=== PATIENT | female | born 1950 | race Caucasian/White ===

== ENCOUNTER 2017-11-05 23:34 | Inpatient (IN) | payer MEDICARE, OTHER ==
[2017-11-06] MEDS ORDERED: ONDANSETRON HCL/PF 2 MG/ML VIAL IV ONE ×2 (00:27→03:04)
--- NOTE | 2017-11-06 00:33 | ERNOTE ---
Abdominal HPI - General Chief Complaint: Abdominal Pain Time Seen by Provider: 11/06/17 00:22 Source: patient Exam Limitations: no limitations - Immun/Allergies/Home Medications Immunizatons: IMMUNIZATION HX Immunizations Up to Date Yes History of Influenza Vaccine Yes Hx Pneumococcal Vaccination Yes Allergies/Adverse Reactions: Allergies No Known Allergies Allergy (Verified 11/05/17 23:53) Home Medications: HOME MEDICATIONS Aspirin [Aspirin Enteric Coated] 81 mg PO DAILY 03/16/13 [Last Taken Unknown] Ibuprofen [Motrin] 200 mg PO Q6H PRN 03/16/13 [Last Taken Unknown] Omeprazole 20 mg PO DAILY 03/16/13 [Last Taken Unknown] Zolpidem Tartrate [Ambien] 10 mg PO HS 03/16/13 [Last Taken Unknown] valACYclovir HCL [Valtrex] 500 mg PO DAILY 03/16/13 [Last Taken Unknown] Cholecalciferol (Vitamin D3) [Vitamin D3] 2,000 unit PO DAILY 09/10/14 [Last Taken Unknown] Losartan/Hydrochlorothiazide [Hyzaar 100-25 Tablet] 0.5 each PO DAILY 09/10/14 [ Last Taken Unknown] Metoprolol Tartrate [Lopressor] 25 mg PO BID 09/10/14 [Last Taken Unknown] Multivitamin [Multi-Vitamin Daily] 1 each PO DAILY 09/10/14 [Last Taken Unknown] Potassium Chloride [Klor-Con M20] 20 meq PO DAILY 09/10/14 [Last Taken Unknown] ALPRAZolam [Xanax] 0.5 mg PO BID PRN 12/23/14 [Last Taken Unknown] Meloxicam [Mobic] 7.5 mg PO BID 11/05/17 [Last Taken Unknown] - History of Present Illness Narrative: abdominal pain and nausea after eating 1-2 hours. no BM for 2 day. Timing: intermittent Quality: moderate Modifying Factors - (Worsens): Present: eating Review of Systems - Review of Systems Constitutional: Absent: recent illness, fever EYE: Present: no symptoms reported ENT: Present: no symptoms reported Respiratory: Absent: shortness of breath Cardiology: Absent: chest pain Gastrointestinal/Abdominal: Present: See HPI, nausea, vomiting, constipation, abdominal pain Genitourinary: Absent: frequency, pain Musculoskeletal: Present: no symptoms reported Skin: Present: no symptoms reported Neurological: Present: no symptoms reported Endocrine: Absent: excessive sweating, flushing Hematologic/Lymphatic: Present: no symptoms reported Psych: Present: no symptoms reported - Patient's Past Medical History Patient History - Medical: Chronic Pain, Migraines, Osteoarthritis, Other Patient History - Cardiac/Respiratory: Hypertension, Hyperlipidemia Patient History - Cancer: Breast Patient History - Surgical Procedures: Colon Resection, Other Patient History - Other: None - Family History Mother Family History - Medical: Diabetes Type 2 - Social History Living Situations: home Psych History: Hx of Depression Smoking Status: Former smoker Have you smoked in the past 12 months: No Do you dip or chew tobacco: No Alcohol Use: rarely Drug Use: none - Immunizations Immunizations Up to Date: Yes Hx Pneumococcal Vaccination: Yes History of Influenza Vaccine: Yes Physical Exam - Physical Exam General Appearance: Present: wd/wn, alert, mild distress Head Exam: Present: normal inspection, no evidence of injury Eye Exam: Normal inspection: bilateral Neck: Present: normal inspection, nontender Respiratory: Present: no respiratory distress, normal breath sounds, lungs clear Cardiovascular/Chest: Present: regular rate, rhythm, no murmur, normal peripheral pulses Gastrointestinal/Abdominal: Present: normal bowel sounds, tenderness - epigastrium- mild. Absent: distended, guarding, rebound Back Exam: Present: normal inspection, normal range of motion, no CVA tenderness , no vertebral tenderness Extremity Exam: Present: normal inspection, normal range of motion, no edema Neurological Exam: Present: alert, oriented, normal mood/affect, no motor/ sensory deficits Skin Exam: Present: normal color, warm/dry Lymphatic Exam: Present: no adenopathy ED Progress - Results and Orders Patient's Lab Results:: I have reviewed the patient's lab results. Results and Orders: Laboratory Tests 11/06/17 11/06/17 00:27 00:27 WBC 13.6 H Hgb 14.1 Hct 42.8 Plt Count 354 Neutrophils % 84.0 H Sodium 142 Potassium 3.2 L D Chloride 101 Carbon Dioxide 30.4 Anion Gap 13.8 BUN 24 H Creatinine 1.00 Random Glucose 133 H Calcium 9.2 Total Bilirubin 0.4 AST 21 ALT 29 Alkaline Phosphatase 95 Total Protein 7.9 Albumin 3.7 Amylase 30 Lipase 78 - Vital Signs Patient's Vital Signs:: I have reviewed the patient's vital signs. Vital Signs: Vital Signs 11/05/17 23:40 Temperature 36.3 C L Pulse Rate 70 Respiratory 16 Rate Blood Pressure 129/80 O2 Sat by Pulse 97 Oximetry - X-Ray X-Ray #1 X-Ray: abdomen Interpretation: Interp. by me X-ray Comments: non-specific bowel gas pattern - CT/Ultrasound CT/Ultrasound Narrative: Wide mouthed ventral abdominal umbilical hernia measuring 8.6 cm containing multiple segments of dilated and normal caliber small bowel. Low grade partial small bowel obstruction in the anterior abd and pelvis not within the hernia sac diffuse diverticulosis without diverticulitis. distal colonic anastomosis normal appendix small hiatal hernia solid abd organs unremarkable - Progress/Reassessment Chief Complaint: Abdominal Pain Progress:: Unchanged Progress Note-Subjective: 11/06/17 01:12 Discussed lab results with patient and suggested CT. Pt agrees. 11/06/17 05:19 spoke with the patient about CT results and treatment of SBO. she agrees with admission spoke with Dr. Ruiz- general surgery distribution systems serviceperson he agrees with admit to medicine and consult him. spoke with Elsy MCCORD- hospitalist she agrees with admission Departure Clinical Impression: Partial small bowel obstruction - Departure Disposition: [facility] Condition: Good
[2017-11-06 00:42] LABS: Hematocrit 42.8 % (37.0-47.0); Hemoglobin 14.1 gm/dL (12.5-16.0); Mean Cell Volume 84.1 fl (78-100); Mean Corpuscular Hemoglobin 27.7 pg (27-31); Mean Corpuscular Hgb Conc 32.9 g/dl (32-36); Mean Platelet Volume 7.9 fl (6.0-9.5); Neutrophil # 11.4 K/mm3 (1.3-6.0); Platelet Count 354 K/mm3 (150-450); Red Blood Count 5.09 M/mm3 (4.2-5.4); Red Cell Distribution Width 14.1 % (11.5-14.0); White Blood Count 13.6 K/mm3 (4.0-10.5)
[2017-11-06 00:57] LABS: Albumin * 3.7 gm/dl (3.4-5.0); Anion Gap 13.8 mmol/L (6.8-13.8); Bilirubin, Total 0.4 mg/dL (0.0-1.1); Ca. Corrected For Albumin 9.1 mg/dL (8.4-10.2); Calcium * 9.2 mg/dL (7.9-10.9); Carbon Dioxide 30.4 mmol/L (24-32.6); Potassium 3.2 mmol/L (3.4-4.6); Total Protein 7.9 gm/dL (6.2-8.2)
[2017-11-06] MEDS ORDERED: ONDANSETRON HCL/PF 2 MG/ML VIAL ONE ×2 (01:01→03:19)
[2017-11-06] MEDS ORDERED: DIATRIZOATE MEGLUMINE, SODIUM 30 ML BTL ONE ×2 (01:19→01:48)
[2017-11-06 03:04] LABS: Urine Bilirubin Negative (NEGATIVE); Urine Blood Negative /ul (NEGATIVE); Urine Ketone 15 mg/dL (NEGATIVE); Urine Nitrite Negative (NEGATIVE); Urine Protein Negative (NEGATIVE); Urine Specific Gravity 1.025 SP.GR. (1.005-1.010); Urine Urobilinogen Normal (NORMAL)
[2017-11-06 03:06] LABS: Urine Appearance Clear; Urine Bacteria 1+; Urine Color Yellow
[2017-11-06] MEDS ORDERED: HYDROmorphone HCL 2 MG/ML VIAL IV PRN (06:19)
[2017-11-06] MEDS ORDERED: ONDANSETRON HCL/PF 2 MG/ML VIAL IV PRN (06:20)
--- NOTE | 2017-11-06 06:38 | HP ---
Chief Complaint - Chief Complaint Date of Service: 11/06/17 Time of Service: 05:46 Chief Complaint: " Abdominal Pain, Nausea, Vomiting.". Source of HPI- Pt; reliable, ERP report, Pt's EMR. History of Present Illness: Mrs. Lai is a 67-yr-old [place] pt of Dr. Lopez with a PMH of: Anxiety, Breast Ca, Depression, Diverticulitis, GERD, HTN, HLD, IBS, Kidney Cysts, Insomnia & Osteoarthritis. Pt states that on day, she did not feel good. She vomited twice in the night and then felt better. Her bowels were moving well & so she did not suspect any obstruction. Then 4 days later, she felt bloated after eating her meals and she vomited twice again. She states that she also developed epigastric abdominal pain which radiated to her back. She thought she was improving, but last night, she begun vomiting and after the fourth time, she chose to come to the ED. She vomited another 3 times while at the ED. The pain in the epigastric area was back and radiated to her mid back. She denies fevers and chills. Of note, pt was seen at the [facility] in April 2015 for Diverticulitis flare with Abscess and she underwent sigmoid resection in . At the ED tonight, abdominal CT showed PSBO. Laboratory studies showed: WBC- -> 13,600 with a LT shift, K-->3.2. Dr. Ruiz contacted by the ERP and he plans to evaluate pt this am. Pt will be admitted inpatient for SBO. - Patient's Past Medical History Patient History - Medical: Chronic Pain, Migraines, Osteoarthritis, Other Patient History - Cardiac/Respiratory: Hypertension, Hyperlipidemia Patient History - Cancer: Breast Patient History - Surgical Procedures: Colon Resection, Other Patient History - Other: None - Family History Mother Family History - Medical: Diabetes Type 2 Brother Family History - Medical: Diabetes Type 1 Family History - Cardiac/Respiratory: Hypertension, Hyperlipidemia Family History - Cancer: No pertinent family hx, Other Father Family History - Medical: No pertinent hx Family History - Cardiac/Respiratory: No pertinent hx Family History - Cancer: Prostate Sister Family History - Medical: No pertinent hx Family History - Cardiac/Respiratory: Hypertension Family History - Cancer: No pertinent family hx - Social History Living Situations: home Psych History: Hx of Depression Smoking Status: Former smoker Have you smoked in the past 12 months: No Do you dip or chew tobacco: No Alcohol Use: rarely Drug Use: none - Immunizations Immunizations Up to Date: Yes Hx Pneumococcal Vaccination: Yes History of Influenza Vaccine: Yes Review Of Systems (GEN) - Review of Systems Generalized/Overall Review: Present: Malaise, Fatigue. Absent: Weakness, Chills , Fever EENTM: Absent: Eye Pain, Blurred Vision Respiratory: Absent: Cough, Shortness of Breath, Orthopnea Cardiac: Absent: Chest Pain, Edema, Palpitations Abdominal: Present: Nausea, Vomiting, Abdominal Pain, Constipation. Absent: Hematemesis, Diarrhea, Melena, Bright blood from rectum Genitourinary: Absent: Burning, Itching, Urgency, Frequency Musculoskeletal: Absent: Joint Pain, Back Pain, Joint Swelling Neurological: Absent: Headache, Anxiety, Depressed Skin: Absent: Dryness, Lesions, Lumps Endocrine: Present: Intolerance to Cold. Absent: Increased Hunger, Increased Thirst Misc: All systems neg except as marked Allergies/Adverse Reactions: Allergies Allergy/AdvReac Type Severity Reaction Status Date / Time No Known Allergies Allergy Verified 11/06/17 07:50 Home Medications: HOME MEDICATIONS Aspirin [Aspirin Enteric Coated] 81 mg PO DAILY 03/16/13 [Last Taken Unknown] Ibuprofen [Motrin] 200 mg PO Q6H PRN 03/16/13 [Last Taken Unknown] Omeprazole 20 mg PO DAILY 03/16/13 [Last Taken Unknown] Zolpidem Tartrate [Ambien] 10 mg PO HS 03/16/13 [Last Taken Unknown] valACYclovir HCL [Valtrex] 500 mg PO DAILY 03/16/13 [Last Taken Unknown] Cholecalciferol (Vitamin D3) [Vitamin D3] 2,000 unit PO DAILY 09/10/14 [Last Taken Unknown] Metoprolol Tartrate [Lopressor] 25 mg PO BID 09/10/14 [Last Taken Unknown] Multivitamin [Multi-Vitamin Daily] 1 each PO DAILY 09/10/14 [Last Taken Unknown] Potassium Chloride [Klor-Con M20] 20 meq PO DAILY 09/10/14 [Last Taken Unknown] ALPRAZolam [Xanax] 0.5 mg PO BID PRN 12/23/14 [Last Taken Unknown] Meloxicam [Mobic] 7.5 mg PO BID 11/05/17 [Last Taken Unknown] Losartan/Hydrochlorothiazide [Losartan-Hctz 50-12.5 mg Tab] 1 each PO DAILY 08/14 [Last Taken Unknown] Exam - Exam Vital Signs: Vital Signs - Last Taken Temp 36.3 C L 11/05/17 23:40 Pulse 73 11/06/17 04:56 Resp 14 11/06/17 04:29 BP 135/63 11/06/17 04:56 Pulse Ox 95 11/06/17 04:56 Constitutional: Present: Alert, Oriented x3, Cooperative ENT Exam: Present: normal ENT inspection, dry mucous membranes Eye Exam: bilateral eye: normal inspection, PERRL Neck: Present: non-tender, full range of motion, supple Back Exam: Present: normal inspection, no CVA tenderness Breasts: Present: Exam deferred Respiratory: Present: normal breath sounds, No rales, No wheezing Cardiovascular/Chest: Present: normal peripheral pulses, regular rate, rhythm, no chest tenderness Abdomen: Present: Normal bowel sounds, obese, tender - LLQ /Rectal: Present: Exam deferred Extremity: Present: normal range of motion, non-tender, normal inspection, no pedal edema Skin Exam: Present: warm/dry, no cyanosis Lymphatic: Present: no adenopathy Neurologic: Present: alert, normal mood/affect, oriented x 3 Appearance: Present: appropriate appearance, appropriate insight Eye contact: Present: cooperative, good eye contact Thoughts: Present: no apparent hallucination Diagnostic Studies: Laboratory Results WBC 13.6 K/mm3 (4.0-10.5) H 11/06/17 00:27 RBC 5.09 M/mm3 (4.2-5.4) 11/06/17 00:27 Hgb 14.1 gm/dL (12.5-16.0) 11/06/17 00:27 Hct 42.8 % (37.0-47.0) 11/06/17 00:27 MCV 84.1 fl (78-100) 11/06/17 00:27 MCH 27.7 pg (27-31) 11/06/17 00:27 MCHC 32.9 g/dl (32-36) 11/06/17 00:27 RDW 14.1 % (11.5-14.0) H 11/06/17 00:27 Plt Count 354 K/mm3 (150-450) 11/06/17 00:27 MPV 7.9 fl (6.0-9.5) 11/06/17 00: Immature Gran % (Auto) 0.40 % (0.001-0.429) 11/06/17 00: Immature Gran # (Auto) 0.06 K/mm3 (0.000-0.0310) H 11/06/17 00: Neutrophils % 84.0 % (42-75.0) H 11/06/17 00:27 Lymphocytes % 7.8 % (20-51) L 11/06/17 00: Monocytes % 6.7 % (0.0-9) 11/06/17: Eosinophils % 0.7 % (0.0-3.0) 11/06/17 00: Basophils % 0.4 % (0.0-1.0) 11/06/17 00: Nucleated RBC % 0.0 k/mm3 (0-1) 11/06/17 00: Neutrophils # 11.4 K/mm3 (1.3-6.0) H 11/06/17 00:27 Lymphocytes # 1.1 k/mm3 (1.5-3.5) L 11/06/17 00: Monocytes # 0.9 k/mm3 (0.0-1.0) 11/06/17 00: Eosinophils # 0.1 k/mm3 (0.0-0.7) 11/06/17 00: Absolute Basophils 0.1 k/mm3 (0.0-0.1) 11/06/17 00: Sodium 142 mmol/L (132-142) 11/06/17 00: Plasma Sodium 143 mmol/L (130-142) H 11/06/17 00:27 Potassium 3.2 mmol/L (3.4-4.6) L D 11/06/17 00: Chloride 101 mmol/L (97-106) 11/06/17 00: Carbon Dioxide 30.4 mmol/L (24-32.6) 11/06/17 00: Anion Gap 13.8 mmol/L (6.8-13.8) 11/06/17 00: BUN 24 mg/dL (3-23) H 11/06/17 00:27 Creatinine 1.00 mg/dL (0.4-1.4) 11/06/17 00:27 Est GFR (Non-Af Amer) 59 mL/min (60-130) L D 11/06/17 00:27 BUN/Creatinine Ratio 24.0 (9.0-21.6) H 11/06/17 00:27 Random Glucose 133 mg/dL (70-110) H 11/06/17 00:27 Calcium 9.2 mg/dL (7.9-10.9) 11/06/17 00:27 Calcium Adj for Albumin 9.1 mg/dL (8.4-10.2) 11/06/17 00:27 Total Bilirubin 0.4 mg/dL (0.0-1.1) 11/06/17 00:27 AST 21 U/L (0-48) 11/06/17 00:27 ALT 29 U/L (19-67) 11/06/17 00:27 Alkaline Phosphatase 95 U/L (50-170) 11/06/17 00:27 Total Protein 7.9 gm/dL (6.2-8.2) 11/06/17 00:27 Albumin 3.7 gm/dl (3.4-5.0) 11/06/17 00:27 Amylase 30 U/L (25-115) 11/06/17 00:27 Lipase 78 U/L (73-393) 11/06/17 00:27 Urine Color Yellow 11/06/17 02:55 Urine Appearance Clear 11/06/17 02:55 Urine pH 6.0 pH (5.0-7.0) 11/06/17 02:55 Ur Specific [place] 1.025 SP.GR. (1.005-1.010) 11/06/17 02:55 Urine Protein Negative mg/dL (NEGATIVE) 11/06/17 02:55 Urine Glucose (UA) Negative mg/dL (NEGATIVE) 11/06/17 02:55 Urine Ketones 15 mg/dL (NEGATIVE) 11/06/17 02:55 Urine Blood Negative /ul (NEGATIVE) 11/06/17 02:55 Urine Nitrate Negative (NEGATIVE) 11/06/17 02:55 Urine Bilirubin Negative mg/dl (NEGATIVE) 11/06/17 02:55 Urine Urobilinogen Normal EU/dl (NORMAL) 11/06/17 02:55 Ur Leukocyte Esterase 25 /ul (NEGATIVE) H 11/06/17 02:55 Urine RBC 5-10 /hpf (0-5) H 11/06/17 02:55 Urine WBC 5-10 /hpf (0-5) H 11/06/17 02:55 Ur Epithelial Cells 10-25 /hpf (0-5) H 11/06/17 02:55 Urine Bacteria 1+ (NONE) H 11/06/17 02:55 Urine Culture Comments Culture to follow 11/06/17 02:55 Assessment/Plan - Assessment/Plan (1) Partial small bowel obstruction Assessment: Pt abdominal CT showed PSBO. Surgery consulted on pt's case and will evaluate in am. No fevers, V.S stable, no severe or rebound abdominal tenderness. The plan is to manage her conservatively with: NG to LIS, Keep NPO, Provide pain mgt and antiemetics & IVF hydration. Problem: Acute (2) HTN (hypertension) Assessment: Stable- On Lorsartan. Problem: Chronic Qualifiers: Hypertension type: essential hypertension Qualified Code(s): I10 - Essential (primary) hypertension (3) GERD (gastroesophageal reflux disease) Assessment: Stable- Omeprazole. Problem: Chronic (4) Depression Problem: Chronic (5) Anxiety Assessment: Stable- On Xanax and ativan. Problem: Chronic (6) Breast cancer Problem: Chronic
[2017-11-06] MEDS ORDERED: MORPHINE SULFATE 2 MG/ML DISP.SYRIN IV PRN (06:39)
[2017-11-06] MEDS ORDERED: PANTOPRAZOLE SODIUM 40 MG in NORMAL SALINE 50 ML IV SCH (07:00)
[2017-11-06] MEDS: POTASSIUM CHLORIDE 20 MEQ in DEXTROSE 5%-0.5 NORMAL SALINE 990 ML IV SCH ×2 (08:05→16:30)
[2017-11-06] MEDS: KETOROLAC TROMETHAMINE 15 MG/ML VIAL IV PRN ×2 (09:25→20:54)
[2017-11-06] MEDS: METOPROLOL TARTRATE 1 MG/ML AMPUL IV SCH ×3 (09:26→20:53)
[2017-11-06] MEDS: LORazepam 2 MG/ML DISP.SYRIN IV PRN ×2 (09:26→20:53)
--- NOTE | 2017-11-06 14:23 | CONS ---
[facility] - General Date of Service: 11/06/17 Narrative: Pt presents to ER last night with complaints of abdominal pain and was found to have a partial small bowel obstruction. She was admitted, hydrated, and put to gut rest. PMH is significant for a partial colectomy for recurrent diverticulitis in 2014 at [facility]. She has developed an incisional hernia in the interval. She is due for a colonoscopy at the but her parents are in their 90s and failing and her just had quadruple bypass. Her symptoms have improved on gut rest. Source: patient, RN/MD, old records Exam Limitations: no limitations - History of Present Illness Allergies/Adverse Reactions: Allergies No Known Allergies Allergy (Verified 11/06/17 07:50) Home Medications: Home Medications Medication Instructions Recorded Last Taken Aspirin [Aspirin Enteric Coated] 81 mg PO DAILY 03/16/13 Unknown Ibuprofen [Motrin] 200 mg PO Q6H PRN 03/16/13 Unknown Omeprazole 20 mg PO DAILY 03/16/13 Unknown Zolpidem Tartrate [Ambien] 10 mg PO HS 03/16/13 Unknown valACYclovir HCL [Valtrex] 500 mg PO DAILY 03/16/13 Unknown Cholecalciferol (Vitamin D3) 2,000 unit PO DAILY 09/10/14 Unknown [Vitamin D3] Metoprolol Tartrate [Lopressor] 25 mg PO BID 09/10/14 Unknown Multivitamin [Multi-Vitamin Daily] 1 each PO DAILY 09/10/14 Unknown Potassium Chloride [Klor-Con M20] 20 meq PO DAILY 09/10/14 Unknown ALPRAZolam [Xanax] 0.5 mg PO BID PRN 12/23/14 Unknown Meloxicam [Mobic] 7.5 mg PO BID 11/05/17 Unknown Losartan/Hydrochlorothiazide 1 each PO DAILY 11/06/17 Unknown [Losartan-Hctz 50-12.5 mg Tab] - Patient's Past Medical History Patient History - Medical: Chronic Pain, Migraines, Osteoarthritis, Other Patient History - Cardiac/Respiratory: Hypertension, Hyperlipidemia Patient History - Cancer: Breast, Skin Patient History - Surgical Procedures: Colon Resection, Other Patient History - Other: None - Family History Mother Family History - Medical: Diabetes Type 2 Family History - Cardiac/Respiratory: CVA/Stroke, Hyperlipidemia Family History - Cancer: Other Brother Family History - Medical: Diabetes Type 1 Family History - Cardiac/Respiratory: Hypertension, Hyperlipidemia Family History - Cancer: No pertinent family hx, Other Father Family History - Medical: No pertinent hx Family History - Cardiac/Respiratory: No pertinent hx Family History - Cancer: Prostate Sister Family History - Medical: No pertinent hx Family History - Cardiac/Respiratory: Hypertension Family History - Cancer: No pertinent family hx - Social History Living Situations: spouse Psych History: Hx of Depression, Current tx/ever been on anti-depressants or anti-anxiety meds Smoking Status: Former smoker Have you smoked in the past 12 months: No Do you dip or chew tobacco: No Smoking Stop Date: 10/28/90 Patient requests Smoking Cessation Consult: No Initiate information on Smoking Cessation: No Alcohol Use: rarely Drug Use: none - Immunizations Immunizations Up to Date: Yes Hx Pneumococcal Vaccination: Yes History of Influenza Vaccine: Yes Medications - Medications Current Medications: Current Medications Potassium Chloride 20 meq/ (Dextrose/Sodium Chloride) 1,000 mls @ 100 mls/hr IV .Q10H [facility] Stop: 12/06/17 06:31 Last Admin: 11/06/17 08:05 Dose: 100 mls/hr Ketorolac Tromethamine (Toradol) 15 mg IV Q6H PRN PRN Reason: Moderate Pain (pain scale 4-6) Stop: 11/11/17 09:17 Last Admin: 11/06/17 09:25 Dose: 15 mg Lorazepam (Ativan) 0.5 mg IV Q4H PRN PRN Reason: anxiety Stop: 12/06/17 09:02 Last Admin: 11/06/17 09:26 Dose: 0.5 mg Metoprolol Tartrate (Lopressor) 5 mg IV Q6H CLAUDIO Stop: 11/06/17 21:16 Last Admin: 11/06/17 09:26 Dose: 5 mg Physical Examination - Exam Vital Signs: Vital Signs - Last Taken Temp 36.5 C 11/06/17 11:20 Pulse 69 11/06/17 11:20 Resp 16 11/06/17 11:20 BP 125/66 11/06/17 11:20 Pulse Ox 95 11/06/17 11:20 O2 Oxygen Delivery Method Room Air Constitutional: Present: Alert, Oriented x3, Cooperative, Well developed, Well nourished, No distress, Morbidly obese ENT Exam: Present: normal ENT inspection, other - NG tube draining clear fluid Eye Exam: bilateral eye: normal inspection Neck: Present: normal inspection Respiratory: Present: no respiratory distress, no accessory muscle use Abdomen: Present: soft, nontender, no rebound tenderness, no hepatospenomegaly, no masses, obese, hernia - Visible incisional hernia bulge to left of midline scar around the umbilicus. It is not reducible. It is large. It is nontender to palpation and is supple and not firm.. Absent: guarding, rigidity Extremity: Present: normal inspection Skin Exam: Present: normal color, warm/dry Neurologic: Present: no motor/sensory deficits Appearance: Present: appropriate appearance, appropriate insight Eye contact: Present: cooperative, good eye contact Thoughts: Present: normal thought pattern - Assessments/Findings (1) Partial small bowel obstruction Diagnosis(s): Seems relatively mild and should resolve with conservative measures. Transition point seems to be in the pelvis and not associated with the hernia. Problem: Acute (2) Incisional hernia of anterior abdominal wall without obstruction or gangrene Diagnosis(s): This appears to be a fairly complex hernia that is broad based with a defect that measures more than 10 cm in diameter. I asked that she discuss this with her [facility] when she reports for her colonoscopy. Problem: Acute
[2017-11-06] MEDS ORDERED: HEPARIN SODIUM,PORCINE 5,000 UNITS/ML VIAL SC SCH (18:30)
[2017-11-06] MEDS: PANTOPRAZOLE SODIUM 40 MG in NORMAL SALINE 100 ML IV SCH (19:01)
[2017-11-06] MEDS: HEPARIN SODIUM,PORCINE 5,000 UNITS/ML VIAL SC SCH (19:01)
[2017-11-06] MEDS ORDERED: ALPRAZolam 0.5 MG TABLET PO PRN (23:18)
[2017-11-07] MEDS: POTASSIUM CHLORIDE 20 MEQ in DEXTROSE 5%-0.5 NORMAL SALINE 990 ML IV SCH (02:50)
[2017-11-07] MEDS: KETOROLAC TROMETHAMINE 15 MG/ML VIAL IV PRN ×2 (02:59→10:40)
[2017-11-07 05:56] LABS: Hematocrit 37.5 % (37.0-47.0); Hemoglobin 12.4 gm/dL (12.5-16.0); Mean Cell Volume 84.8 fl (78-100); Mean Corpuscular Hemoglobin 28.1 pg (27-31); Mean Corpuscular Hgb Conc 33.1 g/dl (32-36); Neutrophil # 4.2 K/mm3 (1.3-6.0); Neutrophil % 62.6 % (42-75.0); Platelet Count 319 K/mm3 (150-450); Red Blood Count 4.42 M/mm3 (4.2-5.4); Red Cell Distribution Width 14.7 % (11.5-14.0); White Blood Count 6.6 K/mm3 (4.0-10.5)
[2017-11-07 06:14] LABS: Anion Gap 11.5 mmol/L (6.8-13.8); BUN/Creatinine Ratio 16.3 (9.0-21.6); Calcium * 8.8 mg/dL (7.9-10.9); Carbon Dioxide 28.5 mmol/L (24-32.6); Estimated Creat Clear 68.2
--- NOTE | 2017-11-07 06:39 | PN ---
Subjective - Date and Time Seen Date: 11/07/17 Time: 06:35 Subjective Narrative: Pt seen this am. Denies N/V, and abdominal pain is improving. Has been taking ice chips. NG still on LIS. Had 2 bms yesterday. Has no appetite. No other acute events overnight. Objective - Vitals Vitals: Last Vital Signs Temp 36.7 C 11/06/17 23:58 Pulse 68 11/06/17 23:58 Resp 16 11/06/17 23:58 BP 135/65 11/06/17 23:58 Pulse Ox 94 11/06/17 23:58 - Abnormal Lab Findings Abnormal Lab Findings: Abnormal Lab Results 11/07/17 11/07/17 Range/Units 05:35 05:35 Hgb 12.4 L (12.5-16.0) gm/dL RDW 14.7 H (11.5-14.0) % Monocytes % 11.2 H (0.0-9) % Eosinophils % 3.3 H (0.0-3.0) % Potassium 3.0 L (3.4-4.6) mmol/L Random Glucose 121 H (70-110) mg/dL - Exam Constitutional: Present: Alert, Oriented x3, Cooperative, No distress ENT Exam: Present: normal ENT inspection Neck: Present: non-tender, full range of motion, supple Breasts: Present: Exam deferred Respiratory: Present: lungs clear, no accessory muscle use Cardiovascular/Chest: Present: normal peripheral pulses, regular rate, rhythm, no chest tenderness Abdomen: Present: Normal bowel sounds, soft, nontender /Rectal: Present: Exam deferred Extremity: Present: normal range of motion, non-tender, normal inspection Skin Exam: Present: warm/dry, no cyanosis Neurologic: Present: no motor/sensory deficits, alert, normal mood/affect Appearance: Present: appropriate appearance, appropriate insight Eye contact: Present: cooperative, good eye contact, normal speech Thoughts: Present: normal thought pattern, no apparent hallucination Assessment/Plan Plan Narrative: Pt is a 67-yr-old WF with: 1) Partial Small bowel Obstruction- Pt abdominal CT showed PSBO. Surgery consulted and following pt. No fevers, V.S stable, no severe or rebound abdominal tenderness. The plan is to manage her conservatively with: NG to LIS , Keep NPO and advance diet as celina, Provide pain mgt and antiemetics & IVF hydration. 2.) Hypokalemia - K--> 3.0, Will provide K replenishing of 40 meq IV. BMP in am. 3.) Chronic stable conditions- HTN GERD Anxiety Depression Breast Ca. - Problems/Diagnosis (1) Partial small bowel obstruction Problem: Acute (2) HTN (hypertension) Problem: Chronic Qualifiers: Hypertension type: essential hypertension Qualified Code(s): I10 - Essential (primary) hypertension (3) GERD (gastroesophageal reflux disease) Problem: Chronic (4) Depression Problem: Chronic (5) Anxiety Problem: Chronic (6) Breast cancer Problem: Chronic
[2017-11-07] MEDS ORDERED: [UNRECOGNIZED DRUG - OTHER] IV SCH (07:10)
[2017-11-07] MEDS ORDERED: DEXTROSE 5% IV SCH (07:10)
[2017-11-07] MEDS ORDERED: POTASSIUM CHLORIDE IV SCH (07:10)
[2017-11-07] MEDS: PANTOPRAZOLE SODIUM 40 MG in NORMAL SALINE 100 ML IV SCH ×2 (08:10→18:45)
[2017-11-07] MEDS: HEPARIN SODIUM,PORCINE 5,000 UNITS/ML VIAL SC SCH ×2 (08:17→18:45)
[2017-11-07] MEDS ORDERED: [UNRECOGNIZED DRUG - OTHER] PO SCH (09:00)
[2017-11-07] MEDS ORDERED: HYDROCHLOROTHIAZIDE PO SCH (09:00)
[2017-11-07] MEDS ORDERED: LOSARTAN PO SCH (09:00)
[2017-11-07] MEDS: POTASSIUM CHLORIDE 20 MEQ TABLET.SA PO SCH (10:29)
[2017-11-07] MEDS: valACYclovir HCL 500 MG TABLET PO SCH (10:29)
[2017-11-07] MEDS: METOPROLOL TARTRATE 25 MG TABLET PO SCH ×2 (10:39→20:31)
[2017-11-07] MEDS: LOSARTAN POTASSIUM 50 MG TABLET PO SCH (10:39)
[2017-11-07] MEDS: HYDROCHLOROTHIAZIDE 12.5 MG CAPSULE PO SCH (10:40)
--- NOTE | 2017-11-07 12:36 | PN ---
Subjective - Date and Time Seen Date: 11/07/17 Time: 12:32 Subjective Narrative: FU PSBO Feeling better today. BM x 2 yesterday and BM today. Passing a lot of flatus today. NG is clamped and she is drinking some clear soda. Tolerating that just fine. Objective - Vitals Vitals: Last Vital Signs Temp 36.4 C L 11/07/17 11:30 Pulse 78 11/07/17 11:30 Resp 18 11/07/17 11:30 BP 140/71 11/07/17 11:30 Pulse Ox 93 11/07/17 11:30 - Abnormal Lab Findings Abnormal Lab Findings: Abnormal Lab Results 11/07/17 11/07/17 Range/Units 05:35 05:35 Hgb 12.4 L (12.5-16.0) gm/dL RDW 14.7 H (11.5-14.0) % Monocytes % 11.2 H (0.0-9) % Eosinophils % 3.3 H (0.0-3.0) % Potassium 3.0 L (3.4-4.6) mmol/L Random Glucose 121 H (70-110) mg/dL - Exam Constitutional: Present: Alert, Oriented x3, Cooperative, Well developed, Well nourished, No distress ENT Exam: Present: other - NG tube in place. It is clamped. Respiratory: Present: no respiratory distress, no accessory muscle use Abdomen: Present: soft, nontender, nondistended, obese, hernia - Nontender. Absent: guarding, rigidity, rebound tenderness Skin Exam: Present: normal color, warm/dry Appearance: Present: appropriate appearance, appropriate insight Eye contact: Present: cooperative, good eye contact Thoughts: Present: normal thought pattern Assessment/Plan Plan Narrative: Resolving with conservative therapy. Agree with plans to start clears and AAT - Problems/Diagnosis (1) Partial small bowel obstruction Problem: Acute (2) Incisional hernia of anterior abdominal wall without obstruction or gangrene Problem: Acute Narrative: Reiterated that she discuss her hernia with her surgeon when she reports for colonoscopy. She should take her xray films with her
[2017-11-07] MEDS: SACCHAROMYCES BOULARDII 250 MG CAPSULE PO SCH ×2 (14:32→20:31)
[2017-11-07] MEDS: LEVOFLOXACIN 500 MG TABLET PO SCH (14:33)
[2017-11-07] MEDS ORDERED: ACETAMINOPHEN 325 MG TABLET PO PRN (16:46)
[2017-11-07] MEDS: traMADol HCL 50 MG TABLET PO PRN (17:43)
[2017-11-07] MEDS: DEXTROSE 5% IV SCH (18:44)
[2017-11-07] MEDS: [UNRECOGNIZED DRUG - OTHER] IV SCH (18:44)
[2017-11-07] MEDS: POTASSIUM CHLORIDE IV SCH (18:44)
[2017-11-07] MEDS: ZOLPIDEM TARTRATE 10 MG TABLET PO SCH (20:31)
[2017-11-08] MEDS: traMADol HCL 50 MG TABLET PO PRN (03:23)
[2017-11-08] MEDS: DEXTROSE 5% IV SCH ×2 (03:24→16:11)
[2017-11-08] MEDS: POTASSIUM CHLORIDE IV SCH ×2 (03:24→16:11)
[2017-11-08] MEDS: [UNRECOGNIZED DRUG - OTHER] IV SCH ×2 (03:24→16:11)
--- NOTE | 2017-11-08 05:59 | PN ---
Subjective - Date and Time Seen Date: 11/08/17 Time: 05:55 Subjective Narrative: Pt seen this am. States she tolerated the full liquids without any nausea or vomiting. No abdominal tenderness. No other issues according to nursing. Objective - Vitals Vitals: Last Vital Signs Temp 36.4 C L 11/08/17 03:32 Pulse 82 11/08/17 03:32 Resp 18 11/08/17 03:32 BP 125/71 11/08/17 03:32 Pulse Ox 93 11/08/17 03:32 - Abnormal Lab Findings Abnormal Lab Findings: Abnormal Lab Results 11/07/17 11/07/17 Range/Units 05:35 05:35 Hgb 12.4 L (12.5-16.0) gm/dL RDW 14.7 H (11.5-14.0) % Monocytes % 11.2 H (0.0-9) % Eosinophils % 3.3 H (0.0-3.0) % Potassium 3.0 L (3.4-4.6) mmol/L Random Glucose 121 H (70-110) mg/dL - Exam Constitutional: Present: Alert, Oriented x3, Cooperative, No distress ENT Exam: Present: normal ENT inspection. Absent: nasal congestion, nasal drainage Neck: Present: non-tender, full range of motion, supple Breasts: Present: Exam deferred Respiratory: Present: No rales, No wheezing Cardiovascular/Chest: Present: normal peripheral pulses, regular rate, rhythm Abdomen: Present: Normal bowel sounds, soft, nontender /Rectal: Present: Exam deferred Extremity: Present: normal range of motion, normal inspection, no pedal edema Skin Exam: Present: warm/dry, no cyanosis Lymphatic: Present: no adenopathy Neurologic: Present: no motor/sensory deficits, alert, oriented x 3, other - Tremors Appearance: Present: appropriate appearance, appropriate insight Eye contact: Present: cooperative, good eye contact, normal speech Thoughts: Present: no apparent hallucination Assessment/Plan Plan Narrative: Pt is a 67-yr-old WF with: 1) Partial Small bowel Obstruction- Pt abdominal CT showed PSBO. Surgery consulted and following pt. No fevers, V.S stable, no severe or rebound abdominal tenderness. The plan is to manage her conservatively with: NG to LIS , Keep NPO and advance diet as celina, Provide pain mgt and antiemetics & IVF hydration. 11/08 tolerating the clear liquids well, no abd pain, n/v. feels ready for NG tube to be pulled out. 2.) Hypokalemia - K--> 3.0, 11/07 provided K replenishing of 40 meq IV. BMP in am. 11/08 -->K 3.7 3.) Chronic stable conditions- HTN GERD Anxiety Depression Breast Ca. - Problems/Diagnosis (1) Partial small bowel obstruction Problem: Acute (2) HTN (hypertension) Problem: Chronic Qualifiers: Hypertension type: essential hypertension Qualified Code(s): I10 - Essential (primary) hypertension (3) GERD (gastroesophageal reflux disease) Problem: Chronic (4) Depression Problem: Chronic (5) Anxiety Problem: Chronic (6) Breast cancer Problem: Chronic
[2017-11-08 06:08] LABS: Anion Gap 9.1 mmol/L (6.8-13.8); BUN/Creatinine Ratio 8.3 (9.0-21.6); Calcium * 8.7 mg/dL (7.9-10.9); Carbon Dioxide 28.6 mmol/L (24-32.6); Estimated Creat Clear 64.9; Potassium 3.7 mmol/L (3.4-4.6)
--- NOTE | 2017-11-08 07:14 | PN ---
Subjective - Date and Time Seen Date: 11/08/17 Time: 07:12 Subjective Narrative: FU PSBO Tolerated fulls yesterday. NG tube still in. Objective - Vitals Vitals: Last Vital Signs Temp 36.4 C L 11/08/17 03:32 Pulse 82 11/08/17 03:32 Resp 18 11/08/17 03:32 BP 125/71 11/08/17 03:32 Pulse Ox 93 11/08/17 03:32 - Abnormal Lab Findings Abnormal Lab Findings: Abnormal Lab Results 11/08/17 Range/Units 05:35 Chloride 107 H (97-106) mmol/L BUN/Creatinine Ratio 8.3 L (9.0-21.6) Random Glucose 117 H (70-110) mg/dL - Exam Exam Narrative: ABD: soft, nontender, hernia nontender Assessment/Plan Plan Narrative: Resolving PSBO. Agree with plans. Following. - Problems/Diagnosis (1) Partial small bowel obstruction Problem: Acute (2) Incisional hernia of anterior abdominal wall without obstruction or gangrene Problem: Acute
[2017-11-08] MEDS: HEPARIN SODIUM,PORCINE 5,000 UNITS/ML VIAL SC SCH ×2 (08:48→18:54)
[2017-11-08] MEDS: PANTOPRAZOLE SODIUM 40 MG in NORMAL SALINE 100 ML IV SCH (08:49)
[2017-11-08] MEDS: LOSARTAN POTASSIUM 50 MG TABLET PO SCH (08:49)
[2017-11-08] MEDS: METOPROLOL TARTRATE 25 MG TABLET PO SCH ×2 (08:50→20:36)
[2017-11-08] MEDS: POTASSIUM CHLORIDE 20 MEQ TABLET.SA PO SCH (08:50)
[2017-11-08] MEDS: SACCHAROMYCES BOULARDII 250 MG CAPSULE PO SCH ×2 (08:50→20:36)
[2017-11-08] MEDS: HYDROCHLOROTHIAZIDE 12.5 MG CAPSULE PO SCH (08:51)
[2017-11-08] MEDS: valACYclovir HCL 500 MG TABLET PO SCH (08:51)
[2017-11-08] MEDS: LEVOFLOXACIN 500 MG TABLET PO SCH (11:30)
[2017-11-08] MEDS: PANTOPRAZOLE SODIUM 40 MG TABLET.EC PO SCH (20:36)
[2017-11-08] MEDS: ZOLPIDEM TARTRATE 10 MG TABLET PO SCH (20:39)
[2017-11-09] MEDS: HEPARIN SODIUM,PORCINE 5,000 UNITS/ML VIAL SC SCH (07:06)
[2017-11-09] MEDS: PANTOPRAZOLE SODIUM 40 MG TABLET.EC PO SCH (07:06)
[2017-11-09 07:21] VITALS: BP 124/69
--- NOTE | 2017-11-09 09:23 | DS ---
(1) Small bowel obstruction Problem: Acute (2) UTI (urinary tract infection) Problem: Acute Description of Stay: Cici is a 67 yo female with prior colon resection and abdominal hernia who was admitted for small bowel obstruction. She was made NPO and given an NG tube. She clinically improved. Diet was advanced and she tolerated full liquid diet. NG was removed and diet was advanced to regular. She tolerated this and was discharged to home. Procedures Performed: see notes below List Procedures: NG Tube Placement NG Tube Removal Discharge Disposition: Home self care Disposition: Home self-care Condition: Good Discharge Activity: Activity as tolerated Discharge Diet: High Fiber Referrals: Brandon Lopez DO [Primary Care Provider] - One Week Problem Oriented Discharge Instructions to Patient/Family: Small Bowel Obstruction, [id number], Urinary Tract Infection, Adult, [id number] Additional Patient Instructions (free text): Please make TCM appointment unless half-way discharge. Thank you! Sushma @ [phone]. Prescriptions (Any new or edited meds): Levofloxacin [Levaquin] 500 mg PO DAILY@1100 #5 tablet Saccharomyces Boulardii [Florastor] 250 mg PO BID #30 capsule Complete Home Medications List: Complete Home Medication List: Aspirin [Aspirin Enteric Coated] 81 mg PO DAILY 03/16/13 Ibuprofen [Motrin] 200 mg PO Q6H PRN 03/16/13 Omeprazole 20 mg PO DAILY 03/16/13 Zolpidem Tartrate [Ambien] 10 mg PO HS 03/16/13 valACYclovir HCL [Valtrex] 500 mg PO DAILY 03/16/13 Cholecalciferol (Vitamin D3) [Vitamin D3] 2,000 unit PO DAILY 09/10/14 Metoprolol Tartrate [Lopressor] 25 mg PO BID 09/10/14 Multivitamin [Multi-Vitamin Daily] 1 each PO DAILY 09/10/14 Potassium Chloride [Klor-Con M20] 20 meq PO DAILY 09/10/14 ALPRAZolam [Xanax] 0.5 mg PO BID PRN 12/23/14 Meloxicam [Mobic] 7.5 mg PO BID 11/05/17 Losartan/Hydrochlorothiazide [Losartan-Hctz 50-12.5 mg Tab] 1 each PO DAILY 08/14 Levofloxacin [Levaquin] 500 mg PO DAILY@1100 #5 tablet 11/09/17 Saccharomyces Boulardii [Florastor] 250 mg PO BID #30 capsule 11/09/17
[2017-11-09] MEDS: METOPROLOL TARTRATE 25 MG TABLET PO SCH (09:28)
[2017-11-09] MEDS: POTASSIUM CHLORIDE 20 MEQ TABLET.SA PO SCH (09:28)
[2017-11-09] MEDS: LOSARTAN POTASSIUM 50 MG TABLET PO SCH (09:28)
[2017-11-09] MEDS: SACCHAROMYCES BOULARDII 250 MG CAPSULE PO SCH (09:28)
[2017-11-09] MEDS: HYDROCHLOROTHIAZIDE 12.5 MG CAPSULE PO SCH (09:29)
[2017-11-09] MEDS: valACYclovir HCL 500 MG TABLET PO SCH (09:29)
[2017-11-09] MEDS: LEVOFLOXACIN 500 MG TABLET PO SCH (10:04)
== END 2017-11-09 11:00 | disposition home or self-care (01) | DRG 390 ==
LOC: ER 23:34 → MS 11-06 05:24
PROVIDERS: ADMIT Nurse Practitioner; ATTEND Family Medicine
DX: Z85.3 Personal history of malignant neoplasm of breast; K56.600 Partial intestinal obstruction, unspecified as to cause; E87.6 Hypokalemia; Z79.82 Long term (current) use of aspirin; K43.2 Incisional hernia without obstruction or gangrene; I10 Essential (primary) hypertension; Z87.891 Personal history of nicotine dependence; E78.5 Hyperlipidemia, unspecified; K21.9 Gastro-esophageal reflux disease without esophagitis
CPT/HCPCS: 36415; 71045; 74019; 74177; 80048; 80053; 81001; 82150; 83690; 85025; 87077; 87086; 87186; 96374; 99285; J2405

== ENCOUNTER 2017-12-03 18:32 | Inpatient (IN) | payer MEDICARE, OTHER ==
[2017-12-03] MEDS ORDERED: NORMAL SALINE 1,000 ML IV ONE (19:32)
[2017-12-03] MEDS ORDERED: MORPHINE SULFATE 4 MG/ML SYRG IV ONE (19:32)
[2017-12-03 19:35] LABS: Urine Bilirubin Negative (NEGATIVE); Urine Blood Negative /ul (NEGATIVE); Urine Ketone Negative (NEGATIVE); Urine Nitrite Negative (NEGATIVE); Urine Protein Negative (NEGATIVE); Urine Specific Gravity <=1.005 SP.GR. (1.005-1.010); Urine Urobilinogen Normal (NORMAL); Urine pH 6.5 pH (5.0-7.0)
--- NOTE | 2017-12-03 19:37 | ERNOTE ---
<Peter Acen - Last Filed: 12/03/17 19:33> Abdominal HPI - Narrative Date of Service: 12/03/17 - General Chief Complaint: Abdominal Pain Time Seen by Provider: 12/03/17 19:32 Source: patient Exam Limitations: no limitations - Immun/Allergies/Home Medications Immunizatons: IMMUNIZATION HX Immunizations Up to Date Yes History of Influenza Vaccine Yes Hx Pneumococcal Vaccination Yes Allergies/Adverse Reactions: Allergies No Known Allergies Allergy (Verified 12/03/17 18:57) Home Medications: HOME MEDICATIONS Aspirin [Aspirin Enteric Coated] 81 mg PO DAILY 03/16/13 [Last Taken Unknown] Ibuprofen [Motrin] 200 mg PO Q6H PRN 03/16/13 [Last Taken Unknown] Zolpidem Tartrate [Ambien] 10 mg PO HS 03/16/13 [Last Taken Unknown] valACYclovir HCL [Valtrex] 500 mg PO DAILY 03/16/13 [Last Taken Unknown] Cholecalciferol (Vitamin D3) [Vitamin D3] 2,000 unit PO DAILY 09/10/14 [Last Taken Unknown] Metoprolol Tartrate [Lopressor] 25 mg PO BID 09/10/14 [Last Taken Unknown] Multivitamin [Multi-Vitamin Daily] 1 each PO DAILY 09/10/14 [Last Taken Unknown] Potassium Chloride [Klor-Con M20] 20 meq PO DAILY 09/10/14 [Last Taken Unknown] ALPRAZolam [Xanax] 0.5 mg PO BID PRN 12/23/14 [Last Taken Unknown] Meloxicam [Mobic] 7.5 mg PO BID 11/05/17 [Last Taken Unknown] Losartan/Hydrochlorothiazide [Losartan-Hctz 50-12.5 mg Tab] 1 each PO DAILY 08/14 [Last Taken Unknown] Pantoprazole Sodium [Protonix] 40 mg PO 12/03/17 [Last Taken Unknown] Sucralfate [Carafate] 1 g PO 12/03/17 [Last Taken Unknown] - History of Present Illness Narrative: Patient presents to the ED for abdominal pain. This has developed throughout the day. Mid abdomen/epigastric area. She has Hx of recurrent SOBs and this feels similar. Still having bowel movements. Nausea but no vomiting yet. Pain moderate right now. No CP or SOB. no fever. Feels bloated. Timing: constant, getting worse Quality: moderate Activities at Onset: none Modifying Factors - (Improves): Present: other - nothing Modifying Factors - (Worsens): Present: other - nothing Associated Symptoms: Present: nausea. Absent: chest pain, diarrhea-gross blood , diarrhea-mucous, fever/chills, vomiting, shortness of breath Prior Abdominal Problems: Present: similar symptoms Prior Treatment: Present: recently seen Review of Systems - Review of Systems Constitutional: Absent: fever Respiratory: Absent: shortness of breath Cardiology: Absent: chest pain Gastrointestinal/Abdominal: Present: See HPI Genitourinary: Absent: dysuria All Other Systems: All systems neg except as marked - Patient's Past Medical History Patient History - Medical: Chronic Pain, Migraines, Osteoarthritis, Other Patient History - Cardiac/Respiratory: Hypertension, Hyperlipidemia Patient History - Cancer: Breast Patient History - Surgical Procedures: Colon Resection, Other Patient History - Other: None - Family History Mother Family History - Medical: Diabetes Type 2 Family History - Cardiac/Respiratory: CVA/Stroke, Hyperlipidemia Family History - Cancer: Other Brother Family History - Medical: Diabetes Type 1 Family History - Cardiac/Respiratory: Hypertension, Hyperlipidemia Family History - Cancer: No pertinent family hx, Other Father Family History - Medical: No pertinent hx Family History - Cardiac/Respiratory: No pertinent hx Family History - Cancer: Prostate Sister Family History - Medical: No pertinent hx Family History - Cardiac/Respiratory: Hypertension Family History - Cancer: No pertinent family hx - Social History Psych History: Hx of Depression Smoking Status: Former smoker Have you smoked in the past 12 months: No Do you dip or chew tobacco: No Smoking Stop Date: 10/28/90 Alcohol Use: rarely Drug Use: none - Immunizations Immunizations Up to Date: Yes Hx Pneumococcal Vaccination: Yes History of Influenza Vaccine: Yes Physical Exam - Physical Exam General Appearance: Present: alert, no apparent distress Head Exam: Present: normal inspection, no evidence of injury Eye Exam: Normal inspection: bilateral, PERRL: bilateral Ears, Nose, Throat: Present: normal ENT inspection Neck: Present: normal inspection Respiratory: Present: no respiratory distress, normal breath sounds, no accessory muscle use, lungs clear Cardiovascular/Chest: Present: regular rate, rhythm Gastrointestinal/Abdominal: Present: normal bowel sounds, soft, tenderness, other - Periumbilical and epgastric tenderness. No peritoneal signs. hypertympany noted at site of tenderness.. Absent: guarding, rebound Back Exam: Absent: CVA tenderness (R), CVA tenderness (L) Extremity Exam: Present: normal range of motion Neurological Exam: Present: alert, no motor/sensory deficits Skin Exam: Present: normal color, warm/dry ED Progress - Vital Signs Patient's Vital Signs:: I have reviewed the patient's vital signs. Vital Signs: Vital Signs 12/03/17 12/03/17 18:50 19:05 Temperature 36.6 C 36.6 C Pulse Rate 87 87 Respiratory 16 16 Rate Blood Pressure 153/90 153/90 O2 Sat by Pulse 98 98 Oximetry - Progress/Reassessment Chief Complaint: Abdominal Pain Progress Note-Subjective: 12/03/17 19:36 Patietn checked out to Dr Be at shift change pending the return of any testing, labs and x-rays pending. - Transfer of Care Physician Sign Out: Mason Ac Receiving Physician: Giovanni Be Pending Results: Labs, Pain-control, X-ray results Expected Disposition: Admit Departure Clinical Impression: Ventral hernia with bowel obstruction - Departure Disposition: [facility] Condition: Stable <Giovanni Be - Last Filed: 12/04/17 01:04> Abdominal HPI - Immun/Allergies/Home Medications Immunizatons: IMMUNIZATION HX Immunizations Up to Date Yes History of Influenza Vaccine Yes Hx Pneumococcal Vaccination Yes Physical Exam - Physical Exam Gastrointestinal/Abdominal: Present: tenderness, abnormal bowel sounds - hyperactive ED Progress - Results and Orders Patient's Lab Results:: I have reviewed the patient's lab results. Results and Orders: Laboratory Tests 12/03/17 12/03/17 12/03/17 19:25 19:40 19:40 WBC 10.1 Hgb 14.1 Hct 42.1 Plt Count 346 Sodium 140 Potassium 3.6 Chloride 102 Carbon Dioxide 29.0 BUN 14 D Creatinine 0.86 BUN/Creatinine Ratio 16.3 Random Glucose 107 Calcium 9.5 Total Bilirubin 0.5 AST 20 ALT 26 Alkaline Phosphatase 93 Total Protein 7.9 Albumin 3.7 Amylase 26 Lipase 83 Urine Color Yellow Urine Appearance Clear Urine pH 6.5 Ur Specific [place] <=1.005 Urine Protein Negative Urine Glucose (UA) Negative Urine Ketones Negative Urine Blood Negative Urine Nitrate Negative Urine Bilirubin Negative Urine Urobilinogen Normal Ur Leukocyte Esterase Negative Urine RBC None seen Urine WBC Trace H Ur Epithelial Cells None seen Amorphous Sediment Few - 1+ Urine Bacteria Trace Urine Culture Comments No culture indicated - Vital Signs Patient's Vital Signs:: I have reviewed the patient's vital signs. Vital Signs: Vital Signs 12/03/17 12/03/17 12/03/17 18:50 19:05 20:49 Temperature 36.6 C 36.6 C Pulse Rate 87 87 75 Respiratory 16 16 19 Rate Blood Pressure 153/90 153/90 159/98 O2 Sat by Pulse 98 98 96 Oximetry - X-Ray X-Ray #1 X-Ray: abdomen Interpretation: Reviewed by me X-ray Comments: IMPRESSION: 1. Abnormal but nonspecific bowel gas pattern. Could represent generalized ileus, versus partial/ early small bowel obstruction. 2. Additional comments are as above. Electronically signed by Ray Perez M.D.. - CT/Ultrasound CT/Ultrasound Narrative: large midline abd wall hernia with incarcerated loops of small bowel with developing small bowel obstruction. Negative for free air moderate sized hiatal hernia colonic diverticulosis without diverticulitis - Progress/Reassessment Progress Note-Subjective: 12/04/17 00:[address] toby Loco about CT scan and incarcerated hernia with developing SBO. Spoke with Dr. Ruiz about admit he agrees with admit and requests, NG, NPO, pain medications and repeat abd xray in the morning
[2017-12-03 19:43] LABS: Hematocrit 42.1 % (37.0-47.0); Hemoglobin 14.1 gm/dL (12.5-16.0); Mean Cell Volume 83.9 fl (78-100); Mean Corpuscular Hemoglobin 28.1 pg (27-31); Mean Corpuscular Hgb Conc 33.5 g/dl (32-36); Mean Platelet Volume 8.3 fl (6.0-9.5); Neutrophil % 69.4 % (42-75.0); Platelet Count 346 K/mm3 (150-450); Red Blood Count 5.02 M/mm3 (4.2-5.4); Red Cell Distribution Width 14.1 % (11.5-14.0); White Blood Count 10.1 K/mm3 (4.0-10.5)
[2017-12-03] MEDS ORDERED: MORPHINE SULFATE 4 MG/ML SYRG ONE (19:44)
[2017-12-03 19:45] LABS: Urine Amorphous Sediment Few - 1+ (NONE-FEW); Urine Appearance Clear; Urine Bacteria TRACE; Urine Color Yellow; Urine RBC None Seen /hpf (0-5); Urine WBC TRACE /hpf (0-5)
[2017-12-03 19:54] LABS: Albumin * 3.7 gm/dl (3.4-5.0); Anion Gap 12.6 mmol/L (6.8-13.8); BUN/Creatinine Ratio 16.3 (9.0-21.6); Bilirubin, Total 0.5 mg/dL (0.0-1.1); Ca. Corrected For Albumin 9.4 mg/dL (8.4-10.2); Calcium * 9.5 mg/dL (7.9-10.9); Potassium 3.6 mmol/L (3.4-4.6); Total Protein 7.9 gm/dL (6.2-8.2)
[2017-12-03] MEDS ORDERED: ONDANSETRON HCL/PF 2 MG/ML VIAL IV ONE (21:44)
[2017-12-03] MEDS ORDERED: ONDANSETRON HCL/PF 2 MG/ML VIAL ONE (21:46)
[2017-12-03] MEDS ORDERED: DIATRIZOATE MEGLUMINE, SODIUM 30 ML BTL PO ONE (21:51)
[2017-12-03] MEDS ORDERED: DIATRIZOATE MEGLUMINE, SODIUM 30 ML BTL ONE (21:53)
[2017-12-04] MEDS ORDERED: MORPHINE SULFATE 2 MG/ML DISP.SYRIN IV ONE (00:30)
[2017-12-04] MEDS ORDERED: MORPHINE SULFATE 4 MG/ML SYRG IV PRN (00:43)
[2017-12-04] MEDS: RINGER'S SOLUTION,LACTATED 1,000 ML IV PRN ×2 (03:42→17:18)
--- NOTE | 2017-12-04 12:35 | HP ---
Chief Complaint - Chief Complaint Date of Service: 12/04/17 Time of Service: 12:35 Chief Complaint: Periumbilical and lower abdominal band-like pain History of Present Illness: Pt known to me. She has been having occasional admissions for small bowel obstruction over the last few years the most recent of which was last month. That admission resolved with conservative measures. She presented last night with increasing abdominal pain nausea. A plain film was abnormal but non- specific. A subsequent CT showed an early partial-SBO. Also noted was a ventral hernia. Post-admission she had an NG tube placed and had emesis x 2. She felt significantly better following those. In addition, she had an explosive diarrhea stool with a large amount of flatus. Currently she is not complaining of any pain and she has passed some additional flatus. - Patient's Past Medical History Patient History - Medical: Chronic Pain, Migraines, Osteoarthritis, Other Patient History - Cardiac/Respiratory: Hypertension, Hyperlipidemia Patient History - Cancer: Breast Patient History - Surgical Procedures: Colon Resection, Other Patient History - Other: None LMP (females 10-50): Postmenapausal - Family History Mother Family History - Medical: Diabetes Type 2 Family History - Cardiac/Respiratory: CVA/Stroke, Hyperlipidemia Family History - Cancer: Other Brother Family History - Medical: Diabetes Type 1 Family History - Cardiac/Respiratory: Hypertension, Hyperlipidemia Family History - Cancer: Other Father Family History - Medical: Other Family History - Cardiac/Respiratory: No pertinent hx Family History - Cancer: Prostate Sister Family History - Medical: No pertinent hx Family History - Cardiac/Respiratory: Hypertension Family History - Cancer: No pertinent family hx - Social History Living Situations: spouse Abuse History: No History of abuse Psych History: Hx of Depression Smoking Status: Former smoker Have you smoked in the past 12 months: No Do you dip or chew tobacco: No Smoking Stop Date: 10/28/90 Alcohol Use: rarely Drug Use: none - Immunizations Immunizations Up to Date: Yes Hx Pneumococcal Vaccination: Yes History of Influenza Vaccine: Yes Review Of Systems (GEN) - Review of Systems Abdominal: Present: Nausea, Vomiting, Abdominal Pain, Diarrhea Misc: All systems neg except as marked Allergies/Adverse Reactions: Allergies Allergy/AdvReac Type Severity Reaction Status Date / Time No Known Allergies Allergy Verified 12/03/17 18:57 Home Medications: HOME MEDICATIONS Aspirin [Aspirin Enteric Coated] 81 mg PO DAILY 03/16/13 [Last Taken Unknown] Ibuprofen [Motrin] 200 mg PO Q6H PRN 03/16/13 [Last Taken Unknown] Zolpidem Tartrate [Ambien] 10 mg PO HS 03/16/13 [Last Taken Unknown] valACYclovir HCL [Valtrex] 500 mg PO DAILY 03/16/13 [Last Taken Unknown] Cholecalciferol (Vitamin D3) [Vitamin D3] 2,000 unit PO DAILY 09/10/14 [Last Taken Unknown] Metoprolol Tartrate [Lopressor] 25 mg PO BID 09/10/14 [Last Taken Unknown] Multivitamin [Multi-Vitamin Daily] 1 each PO DAILY 09/10/14 [Last Taken Unknown] Potassium Chloride [Klor-Con M20] 20 meq PO DAILY 09/10/14 [Last Taken Unknown] ALPRAZolam [Xanax] 0.5 mg PO BID PRN 12/23/14 [Last Taken Unknown] Meloxicam [Mobic] 7.5 mg PO BID 11/05/17 [Last Taken Unknown] Losartan/Hydrochlorothiazide [Losartan-Hctz 50-12.5 mg Tab] 1 each PO DAILY 08/14 [Last Taken Unknown] Pantoprazole Sodium [Protonix] 40 mg PO DAILY 12/03/17 [Last Taken Unknown] Sucralfate [Carafate] 1 g PO QID 12/03/17 [Last Taken Unknown] Exam - Exam Vital Signs: Vital Signs - Last Taken Temp 36.3 C L 12/04/17 10:14 Pulse 62 12/04/17 10:14 Resp 16 12/04/17 10:14 BP 126/70 12/04/17 10:14 Pulse Ox 95 12/04/17 10:14 Constitutional: Present: Alert, Oriented x3, Cooperative, No distress, Morbidly obese ENT Exam: Present: normal ENT inspection Eye Exam: bilateral eye: normal inspection Neck: Present: non-tender, full range of motion, supple, trachea midline. Absent: lymphadenopathy (R), lymphadenopathy (L), thyromegaly Respiratory: Present: lungs clear, normal breath sounds, no respiratory distress , no accessory muscle use Cardiovascular/Chest: Present: regular rate, rhythm, no murmur Abdomen: Present: Normal bowel sounds, soft, nontender, nondistended, no rebound tenderness, no hepatospenomegaly, no masses, obese, hernia - Lower midline hernia fascial defect is not palpable due to girth. There are no contents that are palpable. This area is soft and nontender.. Absent: high pitched bowel sounds Extremity: Present: normal inspection Skin Exam: Present: normal color, warm/dry Neurologic: Present: no motor/sensory deficits Appearance: Present: appropriate appearance, appropriate insight Eye contact: Present: cooperative, good eye contact Thoughts: Present: normal thought pattern Diagnostic Studies: Laboratory Results WBC 10.1 K/mm3 (4.0-10.5) 12/03/17 19:40 RBC 5.02 M/mm3 (4.2-5.4) 12/03/17 19:40 Hgb 14.1 gm/dL (12.5-16.0) 12/03/17 19:40 Hct 42.1 % (37.0-47.0) 12/03/17 19:40 MCV 83.9 fl (78-100) 12/03/17 19:40 MCH 28.1 pg (27-31) 12/03/17 19:40 MCHC 33.5 g/dl (32-36) 12/03/17 19:40 RDW 14.1 % (11.5-14.0) H 12/03/17 19:40 Plt Count 346 K/mm3 (150-450) 12/03/17 19:40 MPV 8.3 fl (6.0-9.5) 12/03/17 19:40 Immature Gran % (Auto) 0.50 % (0.001-0.429) H 12/03/17 19:40 Immature Gran # (Auto) 0.05 K/mm3 (0.000-0.0310) H 12/03/17 19:40 Neutrophils % 69.4 % (42-75.0) 12/03/17 19:40 Lymphocytes % 18.6 % (20-51) L 12/03/17 19:40 Monocytes % 9.0 % (0.0-9) 12/03/17 19:40 Eosinophils % 2.0 % (0.0-3.0) 12/03/17 19:40 Basophils % 0.5 % (0.0-1.0) 12/03/17 19:40 Nucleated RBC % 0.0 k/mm3 (0-1) 12/03/17 19:40 Neutrophils # 7.0 K/mm3 (1.3-6.0) H 12/03/17 19:40 Lymphocytes # 1.9 k/mm3 (1.5-3.5) 12/03/17 19:40 Monocytes # 0.9 k/mm3 (0.0-1.0) 12/03/17 19:40 Eosinophils # 0.2 k/mm3 (0.0-0.7) 12/03/17 19:40 Absolute Basophils 0.1 k/mm3 (0.0-0.1) 12/03/17 19:40 Sodium 140 mmol/L (132-142) 12/03/17 19:40 Plasma Sodium 140 mmol/L (130-142) 12/03/17 19:40 Potassium 3.6 mmol/L (3.4-4.6) 12/03/17 19:40 Chloride 102 mmol/L (97-106) 12/03/17 19:40 Carbon Dioxide 29.0 mmol/L (24-32.6) 12/03/17 19:40 Anion Gap 12.6 mmol/L (6.8-13.8) 12/03/17 19:40 BUN 14 mg/dL (3-23) D 12/03/17 19:40 Creatinine 0.86 mg/dL (0.4-1.4) 12/03/17 19:40 Est GFR (Non-Af Amer) 70 mL/min (60-130) 12/03/17 19:40 BUN/Creatinine Ratio 16.3 (9.0-21.6) 12/03/17 19:40 Random Glucose 107 mg/dL (70-110) 12/03/17 19:40 Calcium 9.5 mg/dL (7.9-10.9) 12/03/17 19:40 Calcium Adj for Albumin 9.4 mg/dL (8.4-10.2) 12/03/17 19:40 Total Bilirubin 0.5 mg/dL (0.0-1.1) 12/03/17 19:40 AST 20 U/L (0-48) 12/03/17 19:40 ALT 26 U/L (19-67) 12/03/17 19:40 Alkaline Phosphatase 93 U/L (50-170) 12/03/17 19:40 Total Protein 7.9 gm/dL (6.2-8.2) 12/03/17 19:40 Albumin 3.7 gm/dl (3.4-5.0) 12/03/17 19:40 Amylase 26 U/L (25-115) 12/03/17 19:40 Lipase 83 U/L (73-393) 12/03/17 19:40 Urine Color Yellow 12/03/17 19:25 Urine Appearance Clear 12/03/17 19:25 Urine pH 6.5 pH (5.0-7.0) 12/03/17 19:25 Ur Specific [place] <=1.005 SP.GR. (1.005-1.010) 12/03/17 19:25 Urine Protein Negative mg/dL (NEGATIVE) 12/03/17 19:25 Urine Glucose (UA) Negative mg/dL (NEGATIVE) 12/03/17 19:25 Urine Ketones Negative mg/dL (NEGATIVE) 12/03/17 19:25 Urine Blood Negative /ul (NEGATIVE) 12/03/17 19:25 Urine Nitrate Negative (NEGATIVE) 12/03/17 19:25 Urine Bilirubin Negative mg/dl (NEGATIVE) 12/03/17 19:25 Urine Urobilinogen Normal EU/dl (NORMAL) 12/03/17 19:25 Ur Leukocyte Esterase Negative /ul (NEGATIVE) 12/03/17 19:25 Urine RBC None seen /hpf (0-5) 12/03/17 19:25 Urine WBC Trace /hpf (0-5) H 12/03/17 19:25 Ur Epithelial Cells None seen /hpf (0-5) 12/03/17 19:25 Amorphous Sediment Few - 1+ (NONE-FEW) 12/03/17 19:25 Urine Bacteria Trace (NONE) 12/03/17 19:25 Urine Culture Comments No culture indicated 12/03/17 19:25 Assessment/Plan - Assessment/Plan (1) Partial small bowel obstruction Assessment: Pt presents with recurrent partial-SBO. She has a known ventral hernia and there appears to be some loss of domain. She appears to have relieved her obstruction over night. Will clamp NG and advance diet if appropriate. Discussed that she will need to see her surgeons at [facility] to discuss these recurring obstructions and address her ventral hernia. Problem: Acute
[2017-12-04] MEDS ORDERED: ALPRAZolam 0.5 MG TABLET PO PRN (16:47)
[2017-12-04] MEDS: SUCRALFATE 1 G TABLET PO SCH ×2 (17:44→20:26)
[2017-12-04] MEDS: METOPROLOL TARTRATE 25 MG TABLET PO SCH (20:26)
[2017-12-04] MEDS: ZOLPIDEM TARTRATE 10 MG TABLET PO SCH (20:26)
[2017-12-05] MEDS: RINGER'S SOLUTION,LACTATED 1,000 ML IV PRN ×2 (06:39→18:36)
[2017-12-05] MEDS: PANTOPRAZOLE SODIUM 40 MG TABLET.EC PO SCH (07:22)
[2017-12-05] MEDS: SUCRALFATE 1 G TABLET PO SCH ×4 (09:04→20:46)
[2017-12-05] MEDS: valACYclovir HCL 500 MG TABLET PO SCH (09:05)
[2017-12-05] MEDS: HYDROCHLOROTHIAZIDE 12.5 MG CAPSULE PO SCH (09:05)
[2017-12-05] MEDS: METOPROLOL TARTRATE 25 MG TABLET PO SCH ×2 (09:05→20:46)
[2017-12-05] MEDS: LOSARTAN POTASSIUM 50 MG TABLET PO SCH (09:06)
--- NOTE | 2017-12-05 10:26 | PN ---
Subjective - Date and Time Seen Date: 12/05/17 Time: 10:21 Subjective Narrative: HD2 PSBO Tolerating NG clamping. Tolerating clears without nausea or emesis. Feels a little full after eating. No BM today yet. No pain. Objective - Vitals Vitals: Last Vital Signs Temp 36.8 C 12/05/17 07:03 Pulse 74 12/05/17 09:06 Resp 16 12/05/17 07:03 BP 154/82 12/05/17 09:06 Pulse Ox 94 12/05/17 07:03 - Exam Constitutional: Present: Alert, Oriented x3, Cooperative, No distress Neck: Present: normal inspection Respiratory: Present: no respiratory distress, no accessory muscle use Abdomen: Present: soft, nontender, nondistended Assessment/Plan - Problems/Diagnosis (1) Partial small bowel obstruction Problem: Acute Narrative: Will discontinue NG and advance to full liquid diet. She had an appt to see me next week for EGD. We should put that on hold. We plan to contact [facility] to make appt for her on discharge to address ventral hernia and recurring bowel obstructions. She should be on an all cooked diet post discharge.
[2017-12-05] MEDS: PATIENT'S OWN MEDICATION 1 DOSE DOSE PO SCH (12:28)
[2017-12-05] MEDS: ZOLPIDEM TARTRATE 10 MG TABLET PO SCH (20:46)
[2017-12-06] MEDS: PANTOPRAZOLE SODIUM 40 MG TABLET.EC PO SCH (07:23)
[2017-12-06] MEDS: RINGER'S SOLUTION,LACTATED 1,000 ML IV PRN (07:26)
[2017-12-06] MEDS: SUCRALFATE 1 G TABLET PO SCH ×2 (08:39→13:13)
[2017-12-06] MEDS: LOSARTAN POTASSIUM 50 MG TABLET PO SCH (08:39)
[2017-12-06] MEDS: METOPROLOL TARTRATE 25 MG TABLET PO SCH (08:40)
[2017-12-06] MEDS: PATIENT'S OWN MEDICATION 1 DOSE DOSE PO SCH (08:40)
[2017-12-06] MEDS: HYDROCHLOROTHIAZIDE 12.5 MG CAPSULE PO SCH (08:40)
[2017-12-06] MEDS: valACYclovir HCL 500 MG TABLET PO SCH (08:41)
--- NOTE | 2017-12-06 09:44 | PN ---
Subjective - Date and Time Seen Date: 12/06/17 Time: 09:34 Subjective Narrative: HD3 PSBO Passing flatus. + BM today, small, soft. Tolerating PO fulls. No abdominal pain. Objective - Vitals Vitals: Last Vital Signs Temp 36.7 C 12/06/17 07:35 Pulse 78 12/06/17 08:40 Resp 18 12/06/17 07:35 BP 123/62 12/06/17 08:40 Pulse Ox 98 12/06/17 07:35 - Exam Constitutional: Present: Alert, Oriented x3, Cooperative, No distress Abdomen: Present: soft, nontender, nondistended Assessment/Plan - Problems/Diagnosis (1) Partial small bowel obstruction Problem: Acute Narrative: Will advance to an all cooked regular diet for lunch. If tolerated may dismiss. Will obtain surgical consultation at [facility] for ventral hernia and recurrent SBOs.
[2017-12-06 10:44] VITALS: BP 128/74
--- NOTE | 2017-12-06 12:24 | DS ---
(1) Partial small bowel obstruction Problem: Acute Description of Stay: Pt presented with signs and symptoms consistent with a partial small bowel obstruction. An affliction that appears to be increasing in frequency. She has a known ventral hernia with some loss of domain. She was put to gut rest and hydrated. She had prompt resolution with commencement of bowel movements and flatus. She was started on clears and tolerated those well. Her NG was discontinued. She was advanced gradually to an all-cooked regular diet which was tolerated well. She is discharged in improved condition and we will obtain a visit with her [facility] in regards to her ventral hernia and recurring obstructions. Procedures Performed: none Discharge Disposition: Home self care Disposition: Home self-care Condition: Stable Discharge Activity: Activity as tolerated Discharge Diet: General/regular food - all-cooked Referrals: Brandon Lopez DO [Primary Care Provider] - Additional Patient Instructions (free text): -Please make TCM appointment unless fci discharge. Thank you! Sushma @ [phone]. Refer to Dr Perez at [facility] at discharge. Patient with recurrent SBO. Referral number is [id number]. Complete Home Medications List: Complete Home Medication List: Aspirin [Aspirin Enteric Coated] 81 mg PO DAILY 03/16/13 Ibuprofen [Motrin] 200 mg PO Q6H PRN 03/16/13 Zolpidem Tartrate [Ambien] 10 mg PO HS 03/16/13 valACYclovir HCL [Valtrex] 500 mg PO DAILY 03/16/13 Cholecalciferol (Vitamin D3) [Vitamin D3] 2,000 unit PO DAILY 09/10/14 Metoprolol Tartrate [Lopressor] 25 mg PO BID 09/10/14 Multivitamin [Multi-Vitamin Daily] 1 each PO DAILY 09/10/14 Potassium Chloride [Klor-Con M20] 20 meq PO DAILY 09/10/14 ALPRAZolam [Xanax] 0.5 mg PO BID PRN 12/23/14 Meloxicam [Mobic] 7.5 mg PO BID 11/05/17 Losartan/Hydrochlorothiazide [Losartan-Hctz 50-12.5 mg Tab] 1 each PO DAILY 08/14 Pantoprazole Sodium [Protonix] 40 mg PO DAILY 12/03/17 Sucralfate [Carafate] 1 g PO QID 12/03/17 Letrozole [Femara] 2.5 PO DAILY 12/05/17
== END 2017-12-06 15:18 | disposition home or self-care (01) | DRG 395 ==
LOC: ER 18:32 → MS 12-04 00:33
PROVIDERS: ADMIT Specialist; ATTEND Specialist
DX: K43.0 Incisional hernia with obstruction, without gangrene (principal); I10 Essential (primary) hypertension; E78.5 Hyperlipidemia, unspecified; Z79.82 Long term (current) use of aspirin
CPT/HCPCS: 36415; 71045; 74019; 74177; 80053; 81001; 82150; 83690; 85025; 96374; 96375; 99285; J2405